=== PATIENT | female | born 1935 | race Caucasian/White ===

== ENCOUNTER 2016-10-04 14:41 | Observation (INO) | payer BC ==
[~2016-10-04] VITALS: Ht 167.6 cm; Wt 82.6 kg
--- NOTE | 2016-10-04 14:41 | NUR ---
PT FROM CAR TO ER ROOM 10 WITH C/O SOB AND IRREGULAR HEART RATE.
[2016-10-04 15:34] LABS: HEMATOCRIT 42.8 % (37.0-47.0); HEMOGLOBIN 14.4 g/dl (12.0-16.0); IMMATURE GRANULOCYTES 0.5 % (0.0-1.0); MEAN CELL VOLUME 89.2 fL CALC (80.0-100.0); MEAN CORPUSCULAR HGB CONC 33.6 g/L CALC (32.0-36.0); NEUT# 4.37 thou/uL (2.00-7.15); RED BLOOD COUNT 4.8 mill/uL (4.20-5.60); RED CELL DISTRI WIDTH 13.3 % (11.5-15.5)
--- NOTE | 2016-10-04 15:45 | NUR ---
AT [facility] DISCUSSING PLAN OF CARE WITH PATIENT.
[2016-10-04 15:54] LABS: ALBUMIN 4.3 g/dL (3.2-5.0); ALKALINE PHOSPHATASE 110 u/l (38-126); ANION GAP 17 (6-22 (CALC)); BILIRUBIN, TOTAL 1.1 mg/dL (0.0-1.4); BUN 18 mg/dL (8-23); BUN/CREATININE RATIO 18 (12-20 (CALC)); CALCIUM 9.5 mg/dL (8.4-10.2); CARBON DIOXIDE 23 mmol/l (22-30); CHLORIDE 107 mmol/l (95-108); GFR 53 ML/MIN (>=60 (CALC)); GFR FOR AFR.AMER. > 60 ML/MIN (>=60 (CALC)); GLUCOSE 95 mg/dL (82-115); POTASSIUM 4.1 mmol/l (3.5-5.1); SGOT/AST 21 u/l (9-36); SGPT/ALT 29 u/l (11-66); SODIUM 143 mmol/l (137-146); TOTAL PROTEIN 8.2 g/dL (6.3-8.2)
--- NOTE | 2016-10-04 15:59 | NUR ---
CARDIZEM DRIP HELD. PT SR ON MONITOR EKG REPEATED.
[2016-10-04 16:05] LABS: MYOGLOBIN 37 ng/mL (0 - 62)
--- NOTE | 2016-10-04 17:00 | NUR ---
PT REMAINS IN SR. NO C/O PAIN/SOB. IV FLUIDS INFUSING. SITE HEALTHY. SKIN WDI
--- NOTE | 2016-10-04 19:00 | NUR ---
ATTEMPT TO CALL REPORT. NURSE UNAVAILABLE AT THIS TIME.
--- NOTE | 2016-10-04 19:30 | NUR ---
REPORT PROVIDED TO [facility]URSE [facility].
--- NOTE | 2016-10-04 19:40 | NUR ---
PT TO [facility] ON TELEMETRY. IV SITE HEALTHY TO RAC. HERNANDEZ. SR ON MONITOR. NO SOB.
--- NOTE | 2016-10-04 19:50 | NUR ---
PT TRANSFERED TO FLOOR IN STABLE CONDITION VIA STRETCHER ACCOMPANIED BY KHANGRN;PT AMBUALTED WITH STEADY GAIT TO STANDING SCALE AND BED;VS OBTAINED;PT ORIENTED TO ROOM AND CALL LIGHT SYSTEM AND VERBALIZES UNDERSTANDING;IV SITE TO LAC FLUSHED AND PATENT;TELE MONITOR IN PLACE READING SR 89;ASSESSMENT COMPLETED;PT DENIES ANY PAIN OR DISCOMFORTS;SKIN INTACT;PT STATES LAST BM TO BE 10/03;PT DENIES ANY OTHER NEEDS AT THIS TIME;SAFETY PRECAUTIONS REINFORCED;PT TOLD TO CALL FOR ASSISTANCE IF NEEDED;BED IN LOWEST POSITION WITH CALL LIGHT IN REACH;WILL CONTINUE TO MONITOR
[2016-10-04 20:10] VITALS: BP 132/72
--- NOTE | 2016-10-04 21:12 | NUR ---
NOTIFIED OF LACK OF ORDERS;NO NEW ORDERS RECEIVED;WILL CONTINUE TO MONITOR
[2016-10-04 23:50] VITALS: BP 155/84
--- NOTE | 2016-10-05 | NUR ---
PT SLEEPING IN SEMI FOWLERS POSITION;NO S/S OF DISTRESS NOTED;TELE MONITOR IN PLACE;RESPIRATIONS EVEN AND UNLABORED ON RA;BED IN LOWEST POSITION WITH CALL LIGHT IN REACH;WILL CONTINUE TO MONITOR
[2016-10-05 02:19] LABS: URINE BILIRUBIN - DIPSTICK NEGATIVE (NEGATIVE); URINE BLOOD DIPSTICK NEGATIVE (NEGATIVE); URINE CLARITY CLEAR; URINE COLOR YELLOW; URINE GLUCOSE - DIPSTICK NEGATIVE (NEGATIVE); URINE KETONE NEGATIVE (NEGATIVE); URINE NITRITE - DIPSTICK NEGATIVE (Negative); URINE PH 5.5 (4.5-8.0); URINE PROTEIN - DIPSTICK NEGATIVE (NEG-TRACE); URINE UROBILINOGEN - DIPSTICK 0.2 E.U./dL (0.2)
[2016-10-05 02:20] LABS: URINE LEUK ESTERASE MODERATE (NEGATIVE)
[2016-10-05 02:28] LABS: URINE RBC 0-2 RBC/hpf (0-5); URINE SQUAMOUS EPITHELIAL CELL FEW EPI/hpf (0-FEW)
--- NOTE | 2016-10-05 03:30 | NUR ---
PT RESTING IN SEMI FOWLERS POSITION;PT DENIES ANY PAIN OR DISCOMFORTS;RESPIRATIONS EVEN AND UNLABORED ON RA;TELE MONITOR IN PLACE;PT TOLD TO CALL FOR ASSISTANCE IF NEEDED;BED IN LOWEST POSITION WITH CALL LIGHT IN REACH;WILL CONTINUE TO MONITOR
[2016-10-05 04:00] VITALS: BP 113/48
--- NOTE | 2016-10-05 07:00 | NUR ---
RECEIVED BEDSIDE REPORT FROM ABBIE PARKER. PT RESTING IN SEMI FOWLERS WITH EYES OPEN. RESPS EVEN AND UNLABORED ON ROOM AIR, TELE MONITOR IN PLACE. DENIES PAIN OR DISCOMFORT. PLAN OF CARE DISCUSSED. SAFETY PRECAUTIONS REINFORCED. BED IN LOWEST POSITION WITH WHEELS LOCKED. CALL LIGHT WITHIN REACH. WILL CONTINUE TO MONITOR.
[2016-10-05 07:55] VITALS: BP 160/78
[2016-10-05] MEDS ORDERED: XARELTO20 MG PO (11:09)
[2016-10-05 11:24] VITALS: BP 170/68
--- NOTE | 2016-10-05 11:52 | NUR ---
IN HIGH FOWLERS EATING LUNCH. RESPS EVEN AND UNLABORED ON ROOM AIR, TELE MONITOR IN PLACE. DENIES PAIN OR DISCOMFORT. CALL LIGHT WITHIN REACH. ENCOURAGED PT TO CALL FOR ANY NEEDS.
--- NOTE | 2016-10-05 15:17 | NUR ---
DR NEWMAN IN TO SEE PT, NEW ORDERS RECEIVED.
[2016-10-05 16:14] VITALS: BP 163/80
[2016-10-05 16:28] VITALS: BP 163/80
[2016-10-05] MEDS ORDERED: KEFLEX500 M1 PO (18:08)
[2016-10-05] MEDS ORDERED: LOPRESSOR25 MG PO (18:08)
--- NOTE | 2016-10-05 19:16 | NUR ---
Discharge instructions given. Patient verbalizes understanding of same. Discharged in stable condition via Wheelchair to Home with friend. All belongings sent with pt.
== END 2016-10-05 19:15 | disposition home or self-care (01) | DRG 309 ==
LOC: ENPENDDIS → ED 14:41 → ED-I 15:30 → ED 15:30 → ED-I 16:15 → ED 17:49 → MS2 18:08
PROVIDERS: Emergency Medicine; ADMIT Internal Medicine; ATTEND Internal Medicine
DX: I48.0 Paroxysmal atrial fibrillation (principal); N39.0 Urinary tract infection, site not specified; I10 Essential (primary) hypertension; Z79.01 Long term (current) use of anticoagulants
CPT/HCPCS: G0378

== ENCOUNTER 2018-07-09 14:31 | Emergency (ER) | payer BC ==
[~2018-07-09] VITALS: Ht 167.6 cm; Wt 77.0 kg
[~2018-07-09 14:31] MED LIST: KEFLEX500 M1 PO; LOPRESSOR25 MG PO; XARELTO20 MG PO
[2018-07-09] MEDS ORDERED: ALCLOMETASONE EX (15:45)
[2018-07-09] MEDS ORDERED: SERTRALINE HCL50 MG PO (15:54)
[2018-07-09] MEDS ORDERED: CETIRIZINE10 MG PO (15:54)
[2018-07-09 15:55] VITALS: BP 143/87
[2018-07-09] MEDS ORDERED: METO50TA52 PO (15:55)
== END 2018-07-09 15:55 | disposition home or self-care (01) | DRG 951 ==
LOC: ED 14:31
DX: Z76.0 Encounter for issue of repeat prescription (principal); L55.9 Sunburn, unspecified; I10 Essential (primary) hypertension